=== PATIENT | male | born 1960 | race Caucasian/White ===

== ENCOUNTER → 2017-04-02 | Outpatient (CLI) | payer BC ==
[~2017-04-02] MED LIST: OMEPRAZOLE40 MG PO; PROTONIX PO; TEKTURNA; TEKTURNA HCT 151 TAB PO; TOPROL XL PO; [UNRECOGNIZED DRUG - CODE]
--- NOTE | ~2017-04-02 | US5 ---
[facility] A Service of [facility] / [facility] RADIOLOGY TEXT RESULTS PATIENT: SHANTANU PIERRE LOCATION: [facility] : 64 UNIT #: [id number] AGE: [address]: Will Berry MD SEX: M ORDER DR: [id number] [facility] [address] [place], [place] [address] [id number] O MR#: [id number] Acc #: [id number] NAME: SHANTANU PIERRE : 1960 SEX: M STUDY DATE/TIME: 04/02/2017 10:09 UNIT: CGUS ROOM: STUDY DESCRIPTION: US Abdominal Complete Attending Physician: Will Berry M.D. Referring Physician: Will Berry M.D. Ordering Physician: Will Berry M.D. Primary Care Physician: Will Berry M.D. MEDICAL IMAGING REPORT This report is preliminary unless electronic signature is present EXAM Abdominal ultrasound INDICATION Epigastric pain for the past 2 months. PROCEDURE Schuster-scale and Doppler imaging of the abdomen. COMPARISON None. FINDINGS Pancreas is mostly obscured and not well seen. Submitted images of the abdominal aorta, inferior vena cava unremarkable. Liver measures 16.5 cm and has diffusely increased echotexture. Unremarkable gallbladder. There is a 1.3 cm hypoechoic lesion in the liver. On submitted images, it is not clear whether this is in the right or left lobe of the liver. Common duct measures 2 mm. Right kidney measures 13.4 cm and is normal. The left kidney measures 12.6 cm and is normal. Spleen measures 14.3 cm. IMPRESSION 1. Hepatic steatosis. 2. Splenomegaly. 3. Indeterminate 1.3 cm lesion in the liver. It is indeterminate. Recommend evaluation with either abdominal MRI or liver protocol CT. Dictated by... Jax Baptiste M.D. THIS IS AN ELECTRONICALLY VERIFIED REPORT Jax Baptiste M.D. at 04/03/2017 3:28 PM [facility] A Service of [facility] / [facility] RADIOLOGY TEXT RESULTS PATIENT: SHANTANU PIERRE LOCATION: [facility] : 64 UNIT #: [id number] AGE: [address]: Will Berry MD SEX: M ORDER DR: TAMIA/ottoniel TD: 04/02/2017 14:11 JOB #: [id number] MEDICAL IMAGING REPORT Page 1 of 1 COPY
== END | disposition home or self-care (01) ==
LOC: CGUS 09:43
DX: R10.11 Right upper quadrant pain (principal); K76.0 Fatty (change of) liver, not elsewhere classified; K76.9 Liver disease, unspecified; R16.1 Splenomegaly, not elsewhere classified
CPT/HCPCS: 76700

== ENCOUNTER → 2017-04-30 | Outpatient (CLI) | payer BC ==
--- NOTE | ~2017-04-30 | MR2 ---
[facility]. [facility] A Service of [facility] / [facility] RADIOLOGY TEXT RESULTS PATIENT: SHANTANU PIERRE LOCATION: [facility] : 64 UNIT #: [id number] AGE: [address]: Will Berry MD SEX: M ORDER DR: [id number] [place] [address] [id number] O MR#: [id number] Acc #: [id number] NAME: SHANTANU PIERRE : 1960 SEX: M STUDY DATE/TIME: 04/30/2017 15:37 UNIT: [facility] ROOM: STUDY DESCRIPTION: MR Abdomen WWo Cont Attending Physician: Will Berry M.D. Referring Physician: Will Berry M.D. Ordering Physician: Will Berry M.D. Primary Care Physician: Will Berry M.D. MRI CENTER REPORT This report is preliminary unless electronic signature is present. EXAM MRI abdomen INDICATIONS Right upper quadrant abdominal pain. Abnormal ultrasound. Liver mass. Epigastric abdominal pain. TECHNIQUE Multiplanar MRI of the abdomen with and without IV contrast (20 mL MultiHance IV contrast). COMPARISON STUDIES Abdominal ultrasound 04/02/2017. FINDINGS There is diffuse hepatic steatosis throughout the liver. No hepatic mass. No intrahepatic or extrahepatic biliary dilatation. The hepatic vasculature is patent. The gallbladder is contracted. There is generalized atrophy of the pancreas. The spleen and adrenal glands are within normal limits. There is a small cyst in the superior pole right kidney measuring 0.9 cm. The bowel is not dilated. No ascites. IMPRESSION 1. Diffuse hepatic steatosis. 2. No focal hepatic mass. [facility] A Service of [facility] / [facility] RADIOLOGY TEXT RESULTS PATIENT: SHANTANU PIERRE LOCATION: [facility] : 64 UNIT #: [id number] AGE: [address]: Will Berry MD SEX: M ORDER DR: Dictated by... David Bella M.D. THIS IS AN ELECTRONICALLY VERIFIED REPORT David Bella M.D. at 05/01/2017 2:52 PM RPC/osmin TD: 05/01/2017 14:44 JOB #: [id number] MRI CENTER REPORT Page 1 of 1
== END | disposition home or self-care (01) ==
LOC: SMRI 15:07 → CMRI 16:00
DX: K76.9 Liver disease, unspecified (principal); R10.11 Right upper quadrant pain; R16.1 Splenomegaly, not elsewhere classified; K76.0 Fatty (change of) liver, not elsewhere classified
CPT/HCPCS: 74183; A9581